=== PATIENT | female | born 2000 | race Caucasian/White ===

== ENCOUNTER 2025-10-23 12:07 | Inpatient (IN) | payer OTHER ==
[2025-10-28 06:44] VITALS: BMI 28.1
[2025-10-28] MEDS ORDERED: Diphenoxylate HCl/Atropine Tablet PO PRN (06:50)
[2025-10-28] MEDS ORDERED: HYDROcodone/Acetaminophen 5/325 mg Tablet PO PRN ×2 (06:50→23:31)
[2025-10-28] MEDS ORDERED: hydrALAZINE 20 MG/ML VIAL SLOW IVP PRN ×2 (06:50→23:31)
[2025-10-28] MEDS ORDERED: Acetaminophen 500 MG TAB PO PRN (06:50)
[2025-10-28] MEDS ORDERED: Lidocaine 1% (PF) 30 ML VIAL SC PRN (06:50)
[2025-10-28] MEDS ORDERED: Methylergonovine 0.2 MG/ML VIAL IM PRN (06:50)
[2025-10-28] MEDS ORDERED: Ondansetron PF 4 MG/2 ML Vial IVP PRN ×3 (06:50→23:31)
[2025-10-28] MEDS ORDERED: Carboprost 250 MCG/ML AMP IM PRN (06:50)
[2025-10-28] MEDS ORDERED: Oxytocin 30 units/NS 500 ML 500 ML IV SCH (07:00)
[2025-10-28 07:06] LABS: Hematocrit 35.5 % (34.9-44.5); Hemoglobin 12.5 g/dL (12.0-15.5); Mean Corpuscular Hemoglobin 32.3 pg (27.0-33.0); Mean Corpuscular Volume 91.7 fL (81.6-98.3); Platelet Count 246 10x3/uL (150-450); Red Blood Cell (RBC) Count 3.87 10x6/uL (3.90-5.03); White Blood Cell (WBC) Count 12.55 10x3/uL (3.5-10.5)
[2025-10-28] MEDS: Oxytocin 30 units/NS 500 ML 500 ML IV SCH (07:21)
[2025-10-28 07:30] LABS: Syphilis Antibody Index 0.10 S/CO (<1.00 Non-Reactive)
[2025-10-28 07:32] LABS: Hep B Surf Ag - L&D Non-Reactive S/CO (NonReactive)
[2025-10-28] MEDS: fentaNYL/Ropivacaine Epidural 100 ML ONE (14:55)
[2025-10-28] MEDS ORDERED: Acetaminophen 325 MG TAB PO PRN (15:10)
[2025-10-28] MEDS ORDERED: diphenhydrAMINE 50 MG/ML VIAL IVP PRN (15:10)
[2025-10-28] MEDS ORDERED: Communication Order-Pharmacy FS SCH (15:15)
[2025-10-28] MEDS ORDERED: fentaNYL 2 mcg/Ropivacaine 0.2% Epidural 100 ML CADD EPIDURAL SCH (15:15)
[2025-10-28] MEDS: Ibuprofen 800 MG TAB PO PRN (22:25)
[2025-10-28] MEDS ORDERED: diphenhydrAMINE 25 MG CAP PO PRN (23:31)
[2025-10-28] MEDS ORDERED: Milk Of Magnesia 30 ML UDCUP PO PRN (23:31)
[2025-10-28] MEDS ORDERED: Preparation H Ointment 28 GM TUBE PR PRN (23:31)
[2025-10-28] MEDS ORDERED: Bisacodyl 10 MG SUPP PR PRN (23:31)
[2025-10-28] MEDS ORDERED: Lanolin Ointment 7 GM TUBE TOP PRN (23:31)
[2025-10-29] MEDS: Benzocaine-Menthol 82.5 ML CAN TOP PRN
[2025-10-29] MEDS: Ibuprofen 800 MG TAB PO SCH (04:50)
[2025-10-29] MEDS: Ferrous Sulfate 325 MG TAB PO SCH (09:30)
[2025-10-29] MEDS ORDERED: Bupivacaine/Epinephrine 0.25% 30 ML VIAL ONE (11:56)
[2025-10-29 20:26] VITALS: TEMP 97.5
[2025-10-30 08:08] VITALS: BP 124/88
== END 2025-10-30 14:00 | disposition home or self-care (01) | DRG 807 ==
LOC: CSHLD 10-28 05:51 → CSHPP 10-28 22:35
PROVIDERS: ADMIT Student in an Organized Health Care Education/Training Program; ATTEND Student in an Organized Health Care Education/Training Program
PROC: 10907ZC Drainage of Amniotic Fluid, Therapeutic from Products of Conception, Via Natural or Artificial Opening (ICD-10-PCS; principal; 2025-10-28)
PROC: 10E0XZZ Delivery of Products of Conception, External Approach (ICD-10-PCS; 2025-10-28)
PROC: 0HQ9XZZ Repair Perineum Skin, External Approach (ICD-10-PCS; 2025-10-28)
PROC: 3E033VJ Introduction of Other Hormone into Peripheral Vein, Percutaneous Approach (ICD-10-PCS; 2025-10-28)
DX: O48.0 Post-term pregnancy (principal); Z37.0 Single live birth; Z3A.40 40 weeks gestation of pregnancy; O70.0 First degree perineal laceration during delivery
CPT/HCPCS: 36415; 51702; 85027; 86780; 86850; 86900; 86901; 87340; J2590

== ENCOUNTER 2025-10-24 22:59 | Day surgery (SDC) | payer OTHER ==
[2025-10-24 23:19] VITALS: BMI 28.1
[2025-10-25 00:10] LABS: Fetal Membranes Rupture No Membranes Rupture (No Rupture)
== END 2025-10-25 00:26 | disposition home or self-care (01) ==
LOC: CSHLD/OP 22:59
PROVIDERS: ATTEND Student in an Organized Health Care Education/Training Program
DX: Z03.71 Encounter for suspected problem with amniotic cavity and membrane ruled out (principal); O47.1 False labor at or after 37 completed weeks of gestation; O48.0 Post-term pregnancy; Z3A.40 40 weeks gestation of pregnancy; Z91.030 Bee allergy status
CPT/HCPCS: 84112; 99285